=== PATIENT | female | born 1975 | race African-American/Black ===

== ENCOUNTER 2020-02-09 17:28 | Emergency (ER) | payer SELFPAY ==
[2020-02-09] MEDS ORDERED: IBUPROFEN 600 MG TABLET (FP) PO ONE (17:32)
--- NOTE | 2020-02-09 17:39 | PDOC ---
History of Present Illness - General Chief Complaint: Toothache Stated Complaint: TOOTHACHE Time Seen by Provider: 02/09/20 17:32 History Source: Patient Exam Limitations: No Limitations - History of Present Illness Initial Comments: 02/09/20 17:59 44yo F without co-morbidities with toothache starting today. patient states she had a "bump" that burst into her mouth which decreased pain. Is this a multiple visit Asthma Patient?: No Past History - Medical History Home Medications: Ambulatory Orders Penicillin V Potassium [Pen Vee K -] 500 mg PO QID #28 tablet 02/09/20 Review of Systems - Review of Systems Able to Perform ROS?: Yes Is the patient limited Jamaican proficient: No Constitutional: No: Symptoms Reported HEENTM: Yes: See HPI Respiratory: No: Symptoms reported Cardiac (ROS): No: Symptoms Reported ABD/GI: No: Symptoms Reported : No: Symptoms Reported Musculoskeletal: No: Symptoms Reported Integumentary: No: Symptoms Reported Neurological: No: Symptoms reported Endocrine: No: Symptoms Reported Hematologic/Lymphatic: No: Symptoms Reported *Physical Exam - Physical Exam General Appearance: Yes: Appropriately Dressed. No: Apparent Distress HEENT: positive: Other (Multiple obvious dental caries present to multiple teeth. No palpable abscesses present. No facial swelling.) Neck: positive: Trachea midline, Supple Medical Decision Making - Medical Decision Making 02/09/20 17:57 A/P: 44yo F with toothache starting today Multiple obvious dental caries present to multiple teeth. Pain worse in left lower premolar. No palpable abscess No facial swelling No systemic s/s infection Motrin 600mg PO now D/C with Rx Pen Vee K and dentist referral 02/09/20 18:02 Discharge - Discharge Information Problems reviewed: Yes Clinical Impression/Diagnosis: Toothache Condition: Stable Disposition: HOME - Admission No - Additional Discharge Information Prescriptions: Penicillin V Potassium [Pen Vee K -] 500 mg PO QID #28 tablet - Follow up/Referral - Patient Discharge Instructions Patient Printed Discharge Instructions: DI for Tooth Abscess Additional Instructions: Rest, drink lots of fluids: Teas, water, soups Saltwater gargles/ keep mouth clean and rinse after each meal May use wet teabag for pain relief to area Avoid hard chewing foods, stick to ice cream, Jell-O, yogurt etc. Tylenol or Motrin for fever and pain Complete all medication as prescribed Call [facility] at [phone] Followup with private physician in one to 2 days as needed Return to emergency department for worsened symptoms, fevers, swelling to face or worsened pain - Post Discharge Activity
[2020-02-09 17:45] VITALS: BP 150/90; PULSE 79; TEMP 98; BMI 29.8
== END 2020-02-09 17:42 | disposition home or self-care (01) ==
LOC: JER 17:28
DX: K08.89 Other specified disorders of teeth and supporting structures (principal)
CPT/HCPCS: 99283-25